=== PATIENT | female | born 1965 | race African-American/Black ===

== ENCOUNTER 2018-11-13 15:34 | Inpatient (IN) ==
[2018-11-13] MEDS ORDERED: KETOROLAC 30 MG/1 ML VIAL IM STA (17:44)
[2018-11-13 18:14] LABS: Albumin 2.5 G/DL (3.4-5.0); Bilirubin,Total 1.8 MG/DL (0.2-1.0); Calcium 10.1 MG/DL (8.5-10.1); Osmolality,Calculated 271.7 MOS/KG (273-304); Total Protein 8.4 G/DL (6.4-8.3)
[2018-11-13 18:22] LABS: Basophils # 0.1 10*3/uL (0.0-0.2); Basophils % 0.3 % (0.0-0.8); Hematocrit 32.1 VOL% (35.7-47.0); Hemoglobin 10.3 GM/DL (12.0-16.0); Immature Granulocytes % 1.7 %; Immature Granulocytes Absolute 0.31 #; Lymphocytes # 0.9 10*3/uL (1.4-4.0); Lymphocytes % 5.1 % (21.3-54.2); Mean Corpuscular HGB Conc 32.1 GM/DL (32-36); Mean Corpuscular Volume 89.2 FL (87-102); Mean Platelet Volume 11.8 FL (9.6-12.0); Monocytes % 3.6 % (1.7-12.7); Neutrophils % 89.3 % (38.7-73.9); Platelet Count 221 T/CUMM (130-400); Red Cell Distribution Width 13.7 % (9.3-17.3); White Blood Count 18.5 T/CUMM (4-12)
[2018-11-13] MEDS ORDERED: POTASSIUM CHLORIDE 20 MEQ TABLET PO STA (18:29)
[2018-11-13] MEDS ORDERED: CLINDAMYCIN INJ 600 MG in PREMIX 1 EACH IV STA (18:42)
[2018-11-13] MEDS ORDERED: INSULIN REGULAR 100 UNIT/ML IV STA (18:42)
[2018-11-13] MEDS ORDERED: CLINDAMYCIN INJ 50 ML IV ONE (18:58)
[2018-11-13] MEDS ORDERED: INSULIN REGULAR 100 UNIT/ML ONE (19:22)
[2018-11-13 19:34] LABS: Band Neutrophils 1 % (0-10); Hypochromasia 1+; Lymphocytes 4 % (20-55); Segmented Neutrophils 92 % (50-85); Total Cells Counted 100
[2018-11-13 19:35] LABS: Macrocytosis Slight; Microcytosis 1+
[2018-11-13] MEDS ORDERED: ACETAMINOPHEN 500 MG TABLET PO STA (19:50)
[2018-11-13] MEDS ORDERED: DEXTROSE 50% 25 GM/50 ML SYRINGE IV PRN (20:08)
[2018-11-13] MEDS ORDERED: MORPHINE 4 MG/1 ML VIAL IV PRN (20:08)
[2018-11-13] MEDS ORDERED: ZALEPLON 5 MG CAPSULE PO PRN (20:08)
[2018-11-13] MEDS ORDERED: ACETAMINOPHEN 325 MG TABLET PO PRN (20:08)
[2018-11-13] MEDS ORDERED: guaiFENesin/DM ER 600-30 MG TABLET PO PRN (20:08)
[2018-11-13] MEDS ORDERED: diphenhydrAMINE CAP 25 MG CAPSULE PO PRN (20:08)
[2018-11-13] MEDS ORDERED: NICOTINE 21 MG/24 HR PATCH TRANSDERM PRN (20:08)
[2018-11-13] MEDS ORDERED: GLUCAGON 1 MG VIAL IM PRN (20:08)
[2018-11-13 20:28] LABS: Apearance,Urine CLOUDY (Clear); Bacteria,Urine Occasional /HPF (Few); Blood, Urine Moderate mg/dL (Negative); Glucose,Urine (UA) 50 mg/dL (Negative); Hyaline Casts,Urine 49 /LPF (0-3); Ketones,Urine 5 mg/dL (Negative); Mucus,Urine Moderate /LPF (Occasional); Nitrite,Urine Negative (Negative); Protein,Urine 100 MG/DL; RBC,Urine 41 /HPF (0-4); Squamous Epithelial Cell,Urine Occasional /HPF (0-10); Urine Color Amber (Yellow); Urine Specific Gravity 1.028 (1.001-1.035); WBC,Urine 4 /HPF (0-6)
[2018-11-13 20:30] LABS: Bilirubin,Urine Moderate mg/dL (Negative)
[2018-11-13] MEDS: SODIUM CHLORIDE 0.9% 1,000 ML IV SCH (22:49)
[2018-11-13] MEDS: INSULIN REGULAR 100 UNIT/ML SUBCUT SCH (22:51)
[2018-11-14 02:46] LABS: Basophils % 0.2 % (0.0-0.8); Eosinophils % 0.1 % (0.00-10.9); Hematocrit 27.3 VOL% (35.7-47.0); Hemoglobin 8.8 GM/DL (12.0-16.0); Immature Granulocytes % 0.8 %; Immature Granulocytes Absolute 0.14 #; Lymphocytes # 1.5 10*3/uL (1.4-4.0); Lymphocytes % 8.3 % (21.3-54.2); Mean Corpuscular HGB Conc 32.2 GM/DL (32-36); Mean Corpuscular Volume 89.5 FL (87-102); Neutrophils % 84.6 % (38.7-73.9); Platelet Count 171 T/CUMM (130-400); Red Blood Count 3.05 MC/CUMM (3.8-5.5); Red Cell Distribution Width 13.9 % (9.3-17.3); White Blood Count 17.9 T/CUMM (4-12)
[2018-11-14 03:09] LABS: Albumin 2.1 G/DL (3.4-5.0); Bilirubin,Total 1.3 MG/DL (0.2-1.0); Calcium 9.4 MG/DL (8.5-10.1); Osmolality,Calculated 272.4 MOS/KG (273-304); Total Protein 6.9 G/DL (6.4-8.3)
[2018-11-14] MEDS: CLINDAMYCIN INJ 600 MG in PREMIX 1 EACH IV SCH ×3 (03:44→20:20)
[2018-11-14 03:46] LABS: Lymphocytes 9 % (20-55); Segmented Neutrophils 89 % (50-85); Total Cells Counted 100
[2018-11-14 03:48] LABS: Anisocytosis Slight; Microcytosis Slight
[2018-11-14 03:50] LABS: Platelet Estimate Normal
[2018-11-14] MEDS ORDERED: LIDOCAINE 2% 20 ML VIAL ONE (08:25)
[2018-11-14] MEDS: PANTOPRAZOLE 40 MG TABLET PO SCH (08:56)
[2018-11-14] MEDS: SODIUM CHLORIDE 0.9% 1,000 ML IV SCH ×2 (08:57→19:21)
[2018-11-14] MEDS: INSULIN REGULAR 100 UNIT/ML SUBCUT SCH ×4 (08:58→20:23)
[2018-11-14] MEDS: POTASSIUM CHLORIDE 20 MEQ TABLET PO PRN ×4 (10:00→17:17)
[2018-11-14 10:03] LABS: Cholesterol Crystals None Seen /LPF
[2018-11-14 10:04] LABS: Cholesterol Crystals None Seen /LPF
[2018-11-14 10:42] LABS: Lymphocytes,Synovial Fluid 1 %; Neutrophils,Synovial Fluid 98 %
[2018-11-14 11:21] LABS: Lymphocytes,Synovial Fluid 2 %; Neutrophils,Synovial Fluid 95 %
[2018-11-15] MEDS: POTASSIUM CHLORIDE 20 MEQ TABLET PO PRN ×4 (00:23→10:16)
[2018-11-15] MEDS: SODIUM CHLORIDE 0.9% 1,000 ML IV SCH ×3 (03:21→19:55)
[2018-11-15] MEDS: CLINDAMYCIN INJ 600 MG in PREMIX 1 EACH IV SCH ×3 (04:03→19:55)
[2018-11-15 08:14] LABS: Basophils % 0.3 % (0.0-0.8); Eosinophils # 0.1 10*3/uL (0.0-0.87); Eosinophils % 0.5 % (0.00-10.9); Hematocrit 25.5 VOL% (35.7-47.0); Hemoglobin 8.2 GM/DL (12.0-16.0); Immature Granulocytes % 2.6 %; Immature Granulocytes Absolute 0.29 #; Lymphocytes # 1.1 10*3/uL (1.4-4.0); Lymphocytes % 10.2 % (21.3-54.2); Mean Corpuscular HGB Conc 32.2 GM/DL (32-36); Mean Corpuscular Volume 88.9 FL (87-102); Mean Platelet Volume 11.3 FL (9.6-12.0); Monocytes % 6.9 % (1.7-12.7); Neutrophils % 79.5 % (38.7-73.9); Platelet Count 122 T/CUMM (130-400); Red Blood Count 2.87 MC/CUMM (3.8-5.5); Red Cell Distribution Width 13.7 % (9.3-17.3)
[2018-11-15] MEDS: INSULIN REGULAR 100 UNIT/ML SUBCUT SCH ×4 (08:23→20:00)
[2018-11-15 08:42] LABS: Albumin 1.8 G/DL (3.4-5.0); Bilirubin,Total 1.1 MG/DL (0.2-1.0); Calcium 8.4 MG/DL (8.5-10.1); Osmolality,Calculated 269.2 MOS/KG (273-304); Total Protein 6.3 G/DL (6.4-8.3)
[2018-11-15 08:49] LABS: Band Neutrophils 2 % (0-10); Hypochromasia 1+; Lymphocytes 9 % (20-55); Segmented Neutrophils 83 % (50-85); Total Cells Counted 100
[2018-11-15 08:50] LABS: Microcytosis Slight
[2018-11-15] MEDS: PANTOPRAZOLE 40 MG TABLET PO SCH (10:15)
[2018-11-16] MEDS: CLINDAMYCIN INJ 600 MG in PREMIX 1 EACH IV SCH ×3 (03:39→23:08)
[2018-11-16] MEDS: SODIUM CHLORIDE 0.9% 1,000 ML IV SCH ×3 (03:39→23:07)
[2018-11-16] MEDS: POTASSIUM CHLORIDE 20 MEQ TABLET PO PRN (07:55)
[2018-11-16] MEDS: INSULIN REGULAR 100 UNIT/ML SUBCUT SCH ×4 (08:00→23:11)
[2018-11-16] MEDS: PANTOPRAZOLE 40 MG TABLET PO SCH (08:00)
[2018-11-16 08:19] LABS: Basophils % 0.2 % (0.0-0.8); Eosinophils % 0.1 % (0.00-10.9); Hematocrit 24.4 VOL% (35.7-47.0); Hemoglobin 8.2 GM/DL (12.0-16.0); Immature Granulocytes % 1.2 %; Immature Granulocytes Absolute 0.15 #; Lymphocytes # 0.7 10*3/uL (1.4-4.0); Lymphocytes % 5.7 % (21.3-54.2); Mean Corpuscular HGB Conc 33.6 GM/DL (32-36); Mean Corpuscular Volume 86.8 FL (87-102); Mean Platelet Volume 11.5 FL (9.6-12.0); Monocytes % 8.4 % (1.7-12.7); Neutrophils % 84.4 % (38.7-73.9); Platelet Count 124 T/CUMM (130-400); Red Blood Count 2.81 MC/CUMM (3.8-5.5); Red Cell Distribution Width 13.9 % (9.3-17.3); White Blood Count 12.6 T/CUMM (4-12)
[2018-11-16 08:35] LABS: Albumin 1.7 G/DL (3.4-5.0); Bilirubin,Total 1.4 MG/DL (0.2-1.0); Calcium 8.7 MG/DL (8.5-10.1); Osmolality,Calculated 263.4 MOS/KG (273-304); Total Protein 6.6 G/DL (6.4-8.3)
[2018-11-16 08:41] LABS: Band Neutrophils 5 % (0-10); Eosinophils 3 % (0-10); Hypochromasia 1+; Lymphocytes 3 % (20-55); Microcytosis 1+; Segmented Neutrophils 85 % (50-85); Total Cells Counted 100
[2018-11-16] MEDS ORDERED: POTASSIUM CHLORIDE RIDER 20 MEQ in PREMIX 1 EACH IV PRN (10:59)
[2018-11-16] MEDS: POTASSIUM CHLORIDE RIDER 10 MEQ in PREMIX 1 EACH IV PRN ×5 (11:50→19:39)
[2018-11-16] MEDS: ALBUTEROL/IPRATROPIUM 3 ML NEB RESP TX SCH (20:05)
[2018-11-17] MEDS: POTASSIUM CHLORIDE RIDER 10 MEQ in PREMIX 1 EACH IV PRN ×5 (00:01→06:22)
[2018-11-17] MEDS: ALBUTEROL/IPRATROPIUM 3 ML NEB RESP TX SCH ×4 (01:35→20:23)
[2018-11-17 01:40] LABS: Cyclic Citrull Peptide Interp Negative
[2018-11-17] MEDS: CLINDAMYCIN INJ 600 MG in PREMIX 1 EACH IV SCH ×3 (06:30→21:38)
[2018-11-17] MEDS: SODIUM CHLORIDE 0.9% 1,000 ML IV SCH ×2 (07:49→20:51)
[2018-11-17 08:57] LABS: Basophils % 0.2 % (0.0-0.8); Eosinophils % 0.2 % (0.00-10.9); Hematocrit 24.4 VOL% (35.7-47.0); Immature Granulocytes % 1.5 %; Immature Granulocytes Absolute 0.25 #; Lymphocytes # 0.8 10*3/uL (1.4-4.0); Lymphocytes % 4.7 % (21.3-54.2); Mean Corpuscular HGB Conc 32.8 GM/DL (32-36); Mean Corpuscular Volume 86.8 FL (87-102); Monocytes % 7.4 % (1.7-12.7); Platelet Count 147 T/CUMM (130-400); Red Blood Count 2.81 MC/CUMM (3.8-5.5); Red Cell Distribution Width 14.1 % (9.3-17.3); White Blood Count 16.4 T/CUMM (4-12)
[2018-11-17] MEDS: POTASSIUM CHLORIDE 20 MEQ TABLET PO SCH ×3 (09:05→21:30)
[2018-11-17] MEDS: PANTOPRAZOLE 40 MG TABLET PO SCH (09:05)
[2018-11-17] MEDS: INSULIN REGULAR 100 UNIT/ML SUBCUT SCH ×4 (09:06→21:30)
[2018-11-17] MEDS ORDERED: MAGNESIUM SULF RIDER 2 GM in PREMIX 1 EACH IV PRN (09:15)
[2018-11-17 09:17] LABS: Hypochromasia 1+; Lymphocytes 4 % (20-55); Platelet Estimate Adequate; Segmented Neutrophils 90 % (50-85); Total Cells Counted 100
[2018-11-17 09:18] LABS: Microcytosis Slight
[2018-11-17 09:29] LABS: Albumin 1.6 G/DL (3.4-5.0); Bilirubin,Total 1.1 MG/DL (0.2-1.0); Osmolality,Calculated 263.4 MOS/KG (273-304); Total Protein 6.2 G/DL (6.4-8.3)
[2018-11-17] MEDS: MAGNESIUM SULF RIDER 4 GM in PREMIX 1 EACH IV PRN (10:16)
[2018-11-17] MEDS: ONDANSETRON 4 MG/2 ML VIAL IV PRN (10:20)
[2018-11-17] MEDS: ENOXAPARIN 40 MG/0.4 ML SYRINGE SUBCUT SCH (13:13)
[2018-11-18] MEDS: ALBUTEROL/IPRATROPIUM 3 ML NEB RESP TX SCH ×4 (01:57→19:40)
[2018-11-18] MEDS: CLINDAMYCIN INJ 600 MG in PREMIX 1 EACH IV SCH ×2 (04:35→16:48)
[2018-11-18 08:24] LABS: Basophils % 0.2 % (0.0-0.8); Eosinophils % 0.2 % (0.00-10.9); Hematocrit 23.5 VOL% (35.7-47.0); Immature Granulocytes % 1.5 %; Immature Granulocytes Absolute 0.26 #; Lymphocytes % 5.4 % (21.3-54.2); Mean Corpuscular HGB Conc 32.8 GM/DL (32-36); Mean Corpuscular Volume 86.7 FL (87-102); Mean Platelet Volume 11.5 FL (9.6-12.0); Monocytes % 6.8 % (1.7-12.7); Neutrophils % 85.9 % (38.7-73.9); Platelet Count 196 T/CUMM (130-400); Red Blood Count 2.71 MC/CUMM (3.8-5.5); Red Cell Distribution Width 14.3 % (9.3-17.3); White Blood Count 17.9 T/CUMM (4-12)
[2018-11-18 08:26] LABS: Hemoglobin 7.7 GM/DL (12.0-16.0)
[2018-11-18 08:28] LABS: Albumin 1.4 G/DL (3.4-5.0); Bilirubin,Total 0.9 MG/DL (0.2-1.0); Calcium 8.2 MG/DL (8.5-10.1); Osmolality,Calculated 262.4 MOS/KG (273-304); Total Protein 6.3 G/DL (6.4-8.3)
[2018-11-18 08:32] LABS: Hypochromasia 1+; Lymphocytes 9 % (20-55); Microcytosis Slight; Platelet Estimate Adequate; Segmented Neutrophils 88 % (50-85); Total Cells Counted 100
[2018-11-18] MEDS: INSULIN REGULAR 100 UNIT/ML SUBCUT SCH ×4 (08:58→20:54)
[2018-11-18] MEDS: PANTOPRAZOLE 40 MG TABLET PO SCH (09:10)
[2018-11-18] MEDS: POTASSIUM CHLORIDE 20 MEQ TABLET PO SCH ×2 (09:10→20:57)
[2018-11-18] MEDS: BISACODYL 5 MG TABLET PO PRN (09:10)
[2018-11-18 09:30] LABS: Troponin I < 0.015 NG/ML (0.00-0.045)
[2018-11-18] MEDS: SODIUM CHLORIDE 0.9% 1,000 ML IV SCH (10:44)
[2018-11-18] MEDS: LEVOFLOXACIN INJ 500 MG in PREMIX 1 EACH IV SCH (11:23)
[2018-11-18] MEDS: ENOXAPARIN 40 MG/0.4 ML SYRINGE SUBCUT SCH (11:33)
[2018-11-18] MEDS: SIMETHICONE CHEW 125 MG TABLET PO PRN (18:00)
[2018-11-18] MEDS: ONDANSETRON 4 MG/2 ML VIAL IV PRN (21:11)
[2018-11-19] MEDS: CLINDAMYCIN INJ 600 MG in PREMIX 1 EACH IV SCH ×4 (00:06→23:40)
[2018-11-19] MEDS: ALBUTEROL/IPRATROPIUM 3 ML NEB RESP TX SCH ×4 (00:42→18:40)
[2018-11-19 05:54] LABS: Basophils % 0.2 % (0.0-0.8); Eosinophils % 0.2 % (0.00-10.9); Hematocrit 22.3 VOL% (35.7-47.0); Hemoglobin 7.6 GM/DL (12.0-16.0); Immature Granulocytes % 2.2 %; Immature Granulocytes Absolute 0.43 #; Lymphocytes # 0.7 10*3/uL (1.4-4.0); Lymphocytes % 3.4 % (21.3-54.2); Mean Corpuscular HGB Conc 34.1 GM/DL (32-36); Mean Corpuscular Volume 84.5 FL (87-102); Mean Platelet Volume 11.1 FL (9.6-12.0); Monocytes % 6.5 % (1.7-12.7); Neutrophils % 87.5 % (38.7-73.9); Platelet Count 212 T/CUMM (130-400); Red Blood Count 2.64 MC/CUMM (3.8-5.5); Red Cell Distribution Width 14.2 % (9.3-17.3); White Blood Count 19.1 T/CUMM (4-12)
[2018-11-19 06:07] LABS: Calcium 8.4 MG/DL (8.5-10.1); Osmolality,Calculated 264.5 MOS/KG (273-304)
[2018-11-19 06:49] LABS: Hypochromasia 2+; Lymphocytes 5 % (20-55); Platelet Estimate Adequate; Segmented Neutrophils 91 % (50-85); Total Cells Counted 100
[2018-11-19 06:50] LABS: Microcytosis Slight
[2018-11-19] MEDS: INSULIN REGULAR 100 UNIT/ML SUBCUT SCH ×4 (07:30→20:38)
[2018-11-19] MEDS: POTASSIUM CHLORIDE 20 MEQ TABLET PO SCH ×2 (08:19→20:18)
[2018-11-19] MEDS: PANTOPRAZOLE 40 MG TABLET PO SCH (08:19)
[2018-11-19] MEDS: BISACODYL 5 MG TABLET PO PRN (08:26)
[2018-11-19] MEDS: ENOXAPARIN 40 MG/0.4 ML SYRINGE SUBCUT SCH (12:03)
[2018-11-19] MEDS: LEVOFLOXACIN INJ 500 MG in PREMIX 1 EACH IV SCH (12:03)
[2018-11-20] MEDS: ALBUTEROL/IPRATROPIUM 3 ML NEB RESP TX SCH ×4 (00:45→18:50)
[2018-11-20 05:26] LABS: Basophils # 0.1 10*3/uL (0.0-0.2); Basophils % 0.2 % (0.0-0.8); Eosinophils # 0.1 10*3/uL (0.0-0.87); Eosinophils % 0.3 % (0.00-10.9); Hematocrit 24.3 VOL% (35.7-47.0); Hemoglobin 8.2 GM/DL (12.0-16.0); Immature Granulocytes % 4.9 %; Immature Granulocytes Absolute 1.48 #; Lymphocytes % 3.3 % (21.3-54.2); Mean Corpuscular HGB Conc 33.7 GM/DL (32-36); Mean Corpuscular Volume 85.3 FL (87-102); Mean Platelet Volume 11.4 FL (9.6-12.0); Monocytes % 4.9 % (1.7-12.7); Neutrophils % 86.4 % (38.7-73.9); Platelet Count 260 T/CUMM (130-400); Red Blood Count 2.85 MC/CUMM (3.8-5.5); Red Cell Distribution Width 14.6 % (9.3-17.3); White Blood Count 29.9 T/CUMM (4-12)
[2018-11-20 05:49] LABS: Calcium 8.7 MG/DL (8.5-10.1); Osmolality,Calculated 257.9 MOS/KG (273-304)
[2018-11-20 05:58] LABS: Band Neutrophils 2 % (0-10); Eosinophils 1 % (0-10); Lymphocytes 3 % (20-55); Platelet Estimate Adequate; Segmented Neutrophils 86 % (50-85); Total Cells Counted 100
[2018-11-20 05:59] LABS: Hypochromasia 1+; Microcytosis Slight
[2018-11-20] MEDS: POTASSIUM CHLORIDE 20 MEQ TABLET PO SCH ×2 (08:38→21:45)
[2018-11-20] MEDS: PANTOPRAZOLE 40 MG TABLET PO SCH (08:39)
[2018-11-20] MEDS: CLINDAMYCIN INJ 600 MG in PREMIX 1 EACH IV SCH (08:39)
[2018-11-20] MEDS: methylPREDNISolone SOD SUC 40 MG/1 ML VIAL IV SCH ×2 (08:49→21:43)
[2018-11-20] MEDS: INSULIN REGULAR 100 UNIT/ML SUBCUT SCH ×4 (08:50→21:45)
[2018-11-20] MEDS: ENOXAPARIN 40 MG/0.4 ML SYRINGE SUBCUT SCH (12:06)
[2018-11-20] MEDS: LEVOFLOXACIN INJ 500 MG in PREMIX 1 EACH IV SCH (12:06)
[2018-11-20 12:54] LABS: Apearance,Urine Slightly Hazy (Clear); Bacteria,Urine Occasional /HPF (Few); Bilirubin,Urine Negative (Negative); Blood, Urine Small mg/dL (Negative); Glucose,Urine (UA) 150 mg/dL (Negative); Hyaline Casts,Urine 24 /LPF (0-3); Ketones,Urine 5 mg/dL (Negative); Mucus,Urine Few /LPF (Occasional); Nitrite,Urine Negative (Negative); Protein,Urine 30 MG/DL; RBC,Urine 1 /HPF (0-4); Squamous Epithelial Cell,Urine Few /HPF (0-10); Urine Color Amber (Yellow); Urine Specific Gravity 1.017 (1.001-1.035); WBC,Urine 7 /HPF (0-6)
[2018-11-20] MEDS ORDERED: FUROSEMIDE 40 MG/4 ML VIAL IV ONE (15:07)
[2018-11-20] MEDS: PIPERACILLIN/TAZOBACTAM 3,375 MG in SODIUM CHLORIDE 0.9% 100 ML IV SCH (15:34)
[2018-11-20] MEDS: VANCOMYCIN INJ 1,000 MG in SODIUM CHLORIDE 0.9% 250 ML IV SCH (21:46)
[2018-11-21] MEDS: PIPERACILLIN/TAZOBACTAM 3,375 MG in SODIUM CHLORIDE 0.9% 100 ML IV SCH ×3 (00:35→16:03)
[2018-11-21] MEDS: ALBUTEROL/IPRATROPIUM 3 ML NEB RESP TX SCH ×4 (00:40→19:18)
[2018-11-21 04:37] LABS: Basophils % 0.2 % (0.0-0.8); Hematocrit 21.1 VOL% (35.7-47.0); Hemoglobin 7.4 GM/DL (12.0-16.0); Immature Granulocytes % 3.3 %; Lymphocytes # 0.7 10*3/uL (1.4-4.0); Lymphocytes % 3.2 % (21.3-54.2); Mean Corpuscular HGB Conc 35.1 GM/DL (32-36); Mean Corpuscular Volume 82.4 FL (87-102); Mean Platelet Volume 11.3 FL (9.6-12.0); Monocytes % 3.9 % (1.7-12.7); Neutrophils % 89.4 % (38.7-73.9); Platelet Count 271 T/CUMM (130-400); Red Blood Count 2.56 MC/CUMM (3.8-5.5); Red Cell Distribution Width 14.3 % (9.3-17.3); White Blood Count 21.4 T/CUMM (4-12)
[2018-11-21 04:50] LABS: Albumin 1.4 G/DL (3.4-5.0); Bilirubin,Total 0.9 MG/DL (0.2-1.0); Calcium 8.6 MG/DL (8.5-10.1); Osmolality,Calculated 264.8 MOS/KG (273-304); Total Protein 6.6 G/DL (6.4-8.3)
[2018-11-21 05:07] LABS: Lymphocytes 4 % (20-55); Metamyelocytes 2 %; Segmented Neutrophils 93 % (50-85); Total Cells Counted 100
[2018-11-21 05:08] LABS: Hypochromasia 1+; Target Cells Slight
[2018-11-21 05:09] LABS: Microcytosis Slight
[2018-11-21] MEDS ORDERED: FUROSEMIDE 40 MG/4 ML VIAL IV ONE (07:46)
[2018-11-21] MEDS: INSULIN REGULAR 100 UNIT/ML SUBCUT SCH ×4 (09:12→22:40)
[2018-11-21] MEDS: PANTOPRAZOLE 40 MG TABLET PO SCH (09:14)
[2018-11-21] MEDS: POTASSIUM CHLORIDE 20 MEQ TABLET PO SCH ×2 (09:14→22:40)
[2018-11-21] MEDS: methylPREDNISolone SOD SUC 40 MG/1 ML VIAL IV SCH ×2 (09:15→22:40)
[2018-11-21] MEDS: ONDANSETRON 4 MG/2 ML VIAL IV PRN (09:18)
[2018-11-21] MEDS: ENOXAPARIN 40 MG/0.4 ML SYRINGE SUBCUT SCH (12:25)
[2018-11-21] MEDS: VANCOMYCIN INJ 1,000 MG in SODIUM CHLORIDE 0.9% 250 ML IV SCH ×2 (13:46→22:39)
[2018-11-22] MEDS: PIPERACILLIN/TAZOBACTAM 3,375 MG in SODIUM CHLORIDE 0.9% 100 ML IV SCH ×3 (00:04→16:44)
[2018-11-22] MEDS: ALBUTEROL/IPRATROPIUM 3 ML NEB RESP TX SCH ×4 (00:25→19:37)
[2018-11-22 05:48] LABS: Basophils # 0.1 10*3/uL (0.0-0.2); Basophils % 0.3 % (0.0-0.8); Hematocrit 20.5 VOL% (35.7-47.0); Hemoglobin 7.2 GM/DL (12.0-16.0); Immature Granulocytes % 3.5 %; Immature Granulocytes Absolute 0.66 #; Lymphocytes # 0.7 10*3/uL (1.4-4.0); Lymphocytes % 3.7 % (21.3-54.2); Mean Corpuscular HGB Conc 35.1 GM/DL (32-36); Mean Platelet Volume 11.2 FL (9.6-12.0); Monocytes % 6.6 % (1.7-12.7); Neutrophils % 85.9 % (38.7-73.9); Platelet Count 288 T/CUMM (130-400); Red Cell Distribution Width 14.1 % (9.3-17.3); White Blood Count 18.9 T/CUMM (4-12)
[2018-11-22 06:07] LABS: Calcium 7.8 MG/DL (8.5-10.1); Osmolality,Calculated 273.2 MOS/KG (273-304)
[2018-11-22 06:29] LABS: Lymphocytes 3 % (20-55); Nucleated Red Blood Cells 1 (0-5); Platelet Estimate Normal; Polychromasia Few; Segmented Neutrophils 96 % (50-85); Target Cells Few; Total Cells Counted 100
[2018-11-22 06:30] LABS: Hypochromasia 1+; Microcytosis 1+
[2018-11-22] MEDS ORDERED: FUROSEMIDE 40 MG/4 ML VIAL IV ONE (07:38)
[2018-11-22] MEDS: POTASSIUM CHLORIDE 20 MEQ TABLET PO SCH ×2 (08:19→20:06)
[2018-11-22] MEDS: PANTOPRAZOLE 40 MG TABLET PO SCH (08:19)
[2018-11-22] MEDS: INSULIN REGULAR 100 UNIT/ML SUBCUT SCH ×4 (08:19→20:06)
[2018-11-22] MEDS: methylPREDNISolone SOD SUC 40 MG/1 ML VIAL IV SCH ×2 (08:20→20:07)
[2018-11-22 09:37] LABS: Basophils % 0.2 % (0.0-0.8); Hematocrit 24.4 VOL% (35.7-47.0); Hemoglobin 8.2 GM/DL (12.0-16.0); Immature Granulocytes % 3.4 %; Immature Granulocytes Absolute 0.61 #; Lymphocytes # 0.7 10*3/uL (1.4-4.0); Mean Corpuscular HGB Conc 33.6 GM/DL (32-36); Mean Corpuscular Volume 84.4 FL (87-102); Mean Platelet Volume 11.1 FL (9.6-12.0); NRBC # 0.03 10*3/uL; Neutrophils % 87.4 % (38.7-73.9); Platelet Count 299 T/CUMM (130-400); Red Blood Count 2.89 MC/CUMM (3.8-5.5); Red Cell Distribution Width 14.4 % (9.3-17.3); White Blood Count 17.9 T/CUMM (4-12)
[2018-11-22 10:02] LABS: Hypochromasia 1+; Lymphocytes 2 % (20-55); Platelet Estimate Adequate; Segmented Neutrophils 92 % (50-85); Total Cells Counted 100
[2018-11-22 10:03] LABS: Microcytosis Slight
[2018-11-22 10:18] LABS: % Iron Saturation 29.2 % (18-50); Ferritin 3870.5 ng/ml (8-252)
[2018-11-22 10:21] LABS: Folate 3.6 NG/ML (5.4-24.0); Vitamin B12 1391 PG/ML (211-911)
[2018-11-22 10:41] LABS: Sedimentation Rate-Westergren 125 MM/HR (0-30)
[2018-11-22] MEDS: ENOXAPARIN 40 MG/0.4 ML SYRINGE SUBCUT SCH (12:04)
[2018-11-22] MEDS: VANCOMYCIN INJ 1,000 MG in SODIUM CHLORIDE 0.9% 250 ML IV SCH ×2 (12:12→23:23)
[2018-11-22 12:26] LABS: TB2 Ag Minus Result -0.04 IU/mL
[2018-11-22] MEDS: IRON SUCROSE 200 MG in SODIUM CHLORIDE 0.9% 100 ML IV SCH (13:54)
[2018-11-23] MEDS: ALBUTEROL/IPRATROPIUM 3 ML NEB RESP TX SCH ×4 (00:30→19:29)
[2018-11-23] MEDS: PIPERACILLIN/TAZOBACTAM 3,375 MG in SODIUM CHLORIDE 0.9% 100 ML IV SCH ×3 (00:45→17:55)
[2018-11-23 05:42] LABS: Basophils % 0.1 % (0.0-0.8); Hematocrit 21.2 VOL% (35.7-47.0); Hemoglobin 7.3 GM/DL (12.0-16.0); Immature Granulocytes % 3.8 %; Immature Granulocytes Absolute 0.58 #; Lymphocytes # 0.7 10*3/uL (1.4-4.0); Lymphocytes % 4.5 % (21.3-54.2); Mean Corpuscular HGB Conc 34.4 GM/DL (32-36); Mean Corpuscular Volume 82.8 FL (87-102); Mean Platelet Volume 11.4 FL (9.6-12.0); NRBC # 0.03 10*3/uL; Neutrophils % 84.6 % (38.7-73.9); Platelet Count 268 T/CUMM (130-400); Red Blood Count 2.56 MC/CUMM (3.8-5.5); Red Cell Distribution Width 14.1 % (9.3-17.3); White Blood Count 15.3 T/CUMM (4-12)
[2018-11-23 06:01] LABS: Calcium 8.1 MG/DL (8.5-10.1); Osmolality,Calculated 275.8 MOS/KG (273-304)
[2018-11-23 07:08] LABS: Hypochromasia 1+; Lymphocytes 2 % (20-55); Metamyelocytes 2 %; Microcytosis 1+; Myelocytes 1 %; Segmented Neutrophils 88 % (50-85); Target Cells Few; Total Cells Counted 100
[2018-11-23 07:09] LABS: Platelet Estimate Normal
[2018-11-23] MEDS: INSULIN REGULAR 100 UNIT/ML SUBCUT SCH ×4 (08:04→22:14)
[2018-11-23] MEDS: FOLIC ACID 1 MG TABLET PO SCH (08:05)
[2018-11-23] MEDS: POTASSIUM CHLORIDE 20 MEQ TABLET PO SCH ×2 (08:05→22:10)
[2018-11-23] MEDS: methylPREDNISolone SOD SUC 40 MG/1 ML VIAL IV SCH ×2 (08:05→22:10)
[2018-11-23] MEDS: PANTOPRAZOLE 40 MG TABLET PO SCH (08:05)
[2018-11-23 09:31] LABS: Hemoglobin A1 (Alkaline) 97.8 % (96.5-98.5); Hemoglobin A2 (Alkaline) 2.2 % (1.5-3.5)
[2018-11-23] MEDS: IRON SUCROSE 200 MG in SODIUM CHLORIDE 0.9% 100 ML IV SCH (12:27)
[2018-11-23] MEDS: ENOXAPARIN 40 MG/0.4 ML SYRINGE SUBCUT SCH (12:27)
[2018-11-24] MEDS: ALBUTEROL/IPRATROPIUM 3 ML NEB RESP TX SCH ×5 (00:24→23:58)
[2018-11-24] MEDS: PIPERACILLIN/TAZOBACTAM 3,375 MG in SODIUM CHLORIDE 0.9% 100 ML IV SCH ×3 (00:34→21:56)
[2018-11-24 05:54] LABS: Basophils # 0.1 10*3/uL (0.0-0.2); Basophils % 0.3 % (0.0-0.8); Hematocrit 21.2 VOL% (35.7-47.0); Hemoglobin 7.3 GM/DL (12.0-16.0); Immature Granulocytes % 4.6 %; Immature Granulocytes Absolute 0.94 #; Lymphocytes # 0.9 10*3/uL (1.4-4.0); Lymphocytes % 4.4 % (21.3-54.2); Mean Corpuscular HGB Conc 34.4 GM/DL (32-36); Mean Corpuscular Volume 83.1 FL (87-102); Mean Platelet Volume 11.2 FL (9.6-12.0); Monocytes % 6.5 % (1.7-12.7); NRBC # 0.04 10*3/uL; Neutrophils % 84.2 % (38.7-73.9); Platelet Count 262 T/CUMM (130-400); Red Blood Count 2.55 MC/CUMM (3.8-5.5); Red Cell Distribution Width 13.9 % (9.3-17.3); White Blood Count 20.3 T/CUMM (4-12)
[2018-11-24 06:19] LABS: Osmolality,Calculated 276.7 MOS/KG (273-304)
[2018-11-24 06:59] LABS: Anisocytosis 1+; Band Neutrophils 1 % (0-10); Lymphocytes 6 % (20-55); Segmented Neutrophils 86 % (50-85); Total Cells Counted 100
[2018-11-24 07:00] LABS: Hypochromasia 1+; Platelet Estimate Adequate; Target Cells 2+
[2018-11-24] MEDS ORDERED: MAGNESIUM SULF RIDER 4 GM in PREMIX 1 EACH IV ONE (07:35)
[2018-11-24] MEDS ORDERED: FUROSEMIDE 40 MG/4 ML VIAL IV ONE (07:36)
[2018-11-24] MEDS: POTASSIUM CHLORIDE 20 MEQ TABLET PO SCH ×2 (08:45→21:57)
[2018-11-24] MEDS: PANTOPRAZOLE 40 MG TABLET PO SCH (08:45)
[2018-11-24] MEDS: FOLIC ACID 1 MG TABLET PO SCH (08:45)
[2018-11-24] MEDS: INSULIN REGULAR 100 UNIT/ML SUBCUT SCH ×4 (08:46→21:57)
[2018-11-24] MEDS: ENOXAPARIN 40 MG/0.4 ML SYRINGE SUBCUT SCH (12:48)
[2018-11-24] MEDS: IRON SUCROSE 200 MG in SODIUM CHLORIDE 0.9% 100 ML IV SCH (17:14)
[2018-11-24] MEDS: ACETAMINOPHEN 325 MG TABLET PO PRN (18:20)
[2018-11-24] MEDS: VANCOMYCIN INJ 1,000 MG in SODIUM CHLORIDE 0.9% 250 ML IV SCH (18:34)
[2018-11-25] MEDS: PIPERACILLIN/TAZOBACTAM 3,375 MG in SODIUM CHLORIDE 0.9% 100 ML IV SCH ×3 (05:51→21:26)
[2018-11-25 05:55] LABS: Basophils % 0.1 % (0.0-0.8); Eosinophils # 0.2 10*3/uL (0.0-0.87); Eosinophils % 0.9 % (0.00-10.9); Hematocrit 22.8 VOL% (35.7-47.0); Hemoglobin 7.8 GM/DL (12.0-16.0); Immature Granulocytes % 4.1 %; Immature Granulocytes Absolute 0.87 #; Lymphocytes # 1.5 10*3/uL (1.4-4.0); Lymphocytes % 7.1 % (21.3-54.2); Mean Corpuscular HGB Conc 34.2 GM/DL (32-36); Mean Corpuscular Volume 82.9 FL (87-102); Mean Platelet Volume 11.1 FL (9.6-12.0); NRBC # 0.04 10*3/uL; Neutrophils % 83.8 % (38.7-73.9); Platelet Count 249 T/CUMM (130-400); Red Blood Count 2.75 MC/CUMM (3.8-5.5); Red Cell Distribution Width 14.3 % (9.3-17.3)
[2018-11-25 06:24] LABS: Calcium 7.8 MG/DL (8.5-10.1); Osmolality,Calculated 273.8 MOS/KG (273-304)
[2018-11-25 06:33] LABS: Anisocytosis 1+; Eosinophils 1 % (0-10); Hypochromasia 1+; Lymphocytes 4 % (20-55); Microcytosis 1+; Segmented Neutrophils 95 % (50-85); Total Cells Counted 100
[2018-11-25 06:34] LABS: Platelet Estimate Adequate
[2018-11-25] MEDS: ALBUTEROL/IPRATROPIUM 3 ML NEB RESP TX SCH ×3 (07:32→19:11)
[2018-11-25] MEDS: FUROSEMIDE 40 MG/4 ML VIAL IV SCH (09:32)
[2018-11-25] MEDS: VANCOMYCIN INJ 1,000 MG in SODIUM CHLORIDE 0.9% 250 ML IV SCH ×2 (09:32→18:45)
[2018-11-25] MEDS: PANTOPRAZOLE 40 MG TABLET PO SCH (09:32)
[2018-11-25] MEDS: POTASSIUM CHLORIDE 20 MEQ TABLET PO SCH ×2 (09:33→21:25)
[2018-11-25] MEDS: FOLIC ACID 1 MG TABLET PO SCH (09:33)
[2018-11-25] MEDS: INSULIN REGULAR 100 UNIT/ML SUBCUT SCH ×4 (09:33→20:45)
[2018-11-25] MEDS: IRON SUCROSE 200 MG in SODIUM CHLORIDE 0.9% 100 ML IV SCH (09:36)
[2018-11-25] MEDS: ACETAMINOPHEN 325 MG TABLET PO PRN ×2 (09:42→21:25)
[2018-11-25] MEDS: MAGNESIUM SULF RIDER 4 GM in PREMIX 1 EACH IV PRN (14:08)
[2018-11-25] MEDS: ENOXAPARIN 40 MG/0.4 ML SYRINGE SUBCUT SCH (14:13)
[2018-11-26] MEDS: ALBUTEROL/IPRATROPIUM 3 ML NEB RESP TX SCH ×4 (01:15→19:09)
[2018-11-26] MEDS: PIPERACILLIN/TAZOBACTAM 3,375 MG in SODIUM CHLORIDE 0.9% 100 ML IV SCH ×3 (05:32→21:02)
[2018-11-26 06:20] LABS: Basophils % 0.1 % (0.0-0.8); Eosinophils # 0.2 10*3/uL (0.0-0.87); Hematocrit 22.1 VOL% (35.7-47.0); Hemoglobin 7.5 GM/DL (12.0-16.0); Immature Granulocytes % 5.4 %; Immature Granulocytes Absolute 0.96 #; Lymphocytes # 1.4 10*3/uL (1.4-4.0); Mean Corpuscular HGB Conc 33.9 GM/DL (32-36); Mean Corpuscular Volume 83.4 FL (87-102); Mean Platelet Volume 10.8 FL (9.6-12.0); Monocytes % 5.7 % (1.7-12.7); Neutrophils % 79.8 % (38.7-73.9); Platelet Count 222 T/CUMM (130-400); Red Blood Count 2.65 MC/CUMM (3.8-5.5); Red Cell Distribution Width 14.5 % (9.3-17.3); White Blood Count 17.8 T/CUMM (4-12)
[2018-11-26 06:35] LABS: Calcium 8.3 MG/DL (8.5-10.1); Osmolality,Calculated 273.8 MOS/KG (273-304)
[2018-11-26 06:44] LABS: Band Neutrophils 2 % (0-10); Lymphocytes 4 % (20-55); Myelocytes 1 %; Segmented Neutrophils 90 % (50-85); Total Cells Counted 100
[2018-11-26 06:45] LABS: Anisocytosis 1+; Hypochromasia 1+; Target Cells 1+
[2018-11-26 06:46] LABS: Platelet Estimate Adequate
[2018-11-26] MEDS: INSULIN REGULAR 100 UNIT/ML SUBCUT SCH ×3 (07:39→18:04)
[2018-11-26] MEDS ORDERED: MAGNESIUM SULF RIDER 4 GM in PREMIX 1 EACH IV ONE (07:53)
[2018-11-26] MEDS: FUROSEMIDE 40 MG/4 ML VIAL IV SCH ×3 (09:25→18:03)
[2018-11-26] MEDS: IRON SUCROSE 200 MG in SODIUM CHLORIDE 0.9% 100 ML IV SCH (09:33)
[2018-11-26] MEDS: VANCOMYCIN INJ 1,000 MG in SODIUM CHLORIDE 0.9% 250 ML IV SCH ×2 (09:33→20:45)
[2018-11-26] MEDS: POTASSIUM CHLORIDE 20 MEQ TABLET PO SCH ×2 (09:34→21:02)
[2018-11-26] MEDS: PANTOPRAZOLE 40 MG TABLET PO SCH (09:34)
[2018-11-26] MEDS: FOLIC ACID 1 MG TABLET PO SCH (09:34)
[2018-11-26] MEDS: predniSONE 10 MG TABLET PO SCH (13:48)
[2018-11-26] MEDS: ENOXAPARIN 40 MG/0.4 ML SYRINGE SUBCUT SCH (13:49)
[2018-11-27] MEDS: ALBUTEROL/IPRATROPIUM 3 ML NEB RESP TX SCH ×3 (00:15→14:20)
[2018-11-27] MEDS: INSULIN REGULAR 100 UNIT/ML SUBCUT SCH ×3 (00:21→12:49)
[2018-11-27] MEDS: PIPERACILLIN/TAZOBACTAM 3,375 MG in SODIUM CHLORIDE 0.9% 100 ML IV SCH ×2 (03:45→12:30)
[2018-11-27 06:39] LABS: Basophils # 0.1 10*3/uL (0.0-0.2); Basophils % 0.2 % (0.0-0.8); Eosinophils # 0.1 10*3/uL (0.0-0.87); Eosinophils % 0.5 % (0.00-10.9); Hematocrit 22.6 VOL% (35.7-47.0); Hemoglobin 7.7 GM/DL (12.0-16.0); Immature Granulocytes % 2.3 %; Immature Granulocytes Absolute 0.55 #; Lymphocytes # 1.3 10*3/uL (1.4-4.0); Lymphocytes % 5.6 % (21.3-54.2); Mean Corpuscular HGB Conc 34.1 GM/DL (32-36); Mean Corpuscular Volume 83.4 FL (87-102); Monocytes % 5.7 % (1.7-12.7); Neutrophils % 85.7 % (38.7-73.9); Platelet Count 253 T/CUMM (130-400); Red Blood Count 2.71 MC/CUMM (3.8-5.5); Red Cell Distribution Width 14.6 % (9.3-17.3); White Blood Count 23.7 T/CUMM (4-12)
[2018-11-27 07:21] LABS: Band Neutrophils 2 % (0-10); Hypochromasia 1+; Lymphocytes 3 % (20-55); Segmented Neutrophils 91 % (50-85); Total Cells Counted 100
[2018-11-27 07:22] LABS: Microcytosis 1+
[2018-11-27 07:23] LABS: Platelet Estimate Normal; Target Cells Few
[2018-11-27 07:24] LABS: Calcium 8.4 MG/DL (8.5-10.1)
[2018-11-27] MEDS ORDERED: MAGNESIUM SULF RIDER 4 GM in PREMIX 1 EACH IV ONE (07:42)
[2018-11-27] MEDS: POTASSIUM CHLORIDE 20 MEQ TABLET PO SCH (09:30)
[2018-11-27] MEDS: predniSONE 10 MG TABLET PO SCH (09:30)
[2018-11-27] MEDS: FUROSEMIDE 40 MG/4 ML VIAL IV SCH (09:30)
[2018-11-27] MEDS: PANTOPRAZOLE 40 MG TABLET PO SCH (09:30)
[2018-11-27] MEDS: FOLIC ACID 1 MG TABLET PO SCH (09:30)
[2018-11-27] MEDS: ENOXAPARIN 40 MG/0.4 ML SYRINGE SUBCUT SCH (10:44)
[2018-11-27] MEDS: POTASSIUM CHLORIDE 20 MEQ TABLET PO PRN ×2 (10:44→12:49)
[2018-11-27] MEDS: SIMETHICONE CHEW 125 MG TABLET PO PRN (10:48)
[2018-11-27] MEDS: VANCOMYCIN INJ 1,000 MG in SODIUM CHLORIDE 0.9% 250 ML IV SCH (12:30)
[2018-11-27 13:40] VITALS: BP 107/71
== END 2018-11-27 15:20 | disposition home or self-care (01) | DRG 564 ==
LOC: N.EDINP 15:34 → N.ED 15:34 → N.TELEN 21:39 → N.5E 11-14 15:25 → SUATTDRO 11-16 09:34
PROVIDERS: ATTEND Internal Medicine

== ENCOUNTER 2018-12-20 09:38 | Inpatient (IN) ==
[2018-12-20] MEDS ORDERED: SODIUM CHLORIDE 0.9% 1,000 ML IV STA ×2 (10:12→12:49)
[2018-12-20 10:51] LABS: Basophils % 0.3 % (0.0-0.8); Eosinophils % 0.1 % (0.00-10.9); Hematocrit 29.4 VOL% (35.7-47.0); Hemoglobin 9.2 GM/DL (12.0-16.0); Immature Granulocytes % 0.9 %; Immature Granulocytes Absolute 0.12 #; Lymphocytes % 6.9 % (21.3-54.2); Mean Corpuscular HGB Conc 31.3 GM/DL (32-36); Mean Corpuscular Volume 89.6 FL (87-102); Mean Platelet Volume 10.2 FL (9.6-12.0); Monocytes % 2.9 % (1.7-12.7); Neutrophils % 88.9 % (38.7-73.9); Platelet Count 205 T/CUMM (130-400); Red Blood Count 3.28 MC/CUMM (3.8-5.5); Red Cell Distribution Width 18.2 % (9.3-17.3); White Blood Count 13.8 T/CUMM (4-12)
[2018-12-20 11:08] LABS: Alanine Aminotransferase 23 U/L (13-56); Albumin 2.5 G/DL (3.4-5.0); Alkaline Phosphatase 162 U/L (45-117); Aspartate Amino Transferase 37 U/L (0-37); Blood Urea Nitrogen 14 MG/DL (7-18); Calcium 8.4 MG/DL (8.5-10.1); Glucose 246 MG/DL (74-106); Total Protein 7.1 G/DL (6.4-8.3)
[2018-12-20] MEDS ORDERED: POTASSIUM CHLORIDE RIDER 200 ML IV ONE (11:16)
[2018-12-20] MEDS: POTASSIUM CHLORIDE RIDER 10 MEQ in PREMIX 1 EACH IV SCH ×2 (11:29→12:30)
[2018-12-20 12:32] LABS: Apearance,Urine Clear (Clear); Bilirubin,Urine Negative (Negative); Blood, Urine Negative (Negative); Glucose,Urine (UA) 3+ mg/dL (Negative); Ketones,Urine Negative (Negative); Nitrite,Urine Negative (Negative); Protein,Urine Negative; Squamous Epithelial Cell,Urine Rare /HPF (0-10); Urine Color Yellow (Yellow); Urine Specific Gravity 1.005 (1.001-1.035); Urine Urobilinogen < 2.0 EU/DL (0.2-1.0); WBC,Urine Rare /HPF (0-6)
[2018-12-20 12:33] LABS: Bacteria,Urine 2+ /HPF (Few); Mucus,Urine Trace /LPF (Occasional)
[2018-12-20] MEDS ORDERED: SODIUM CHLORIDE 0.9% 1,950 ML IV ONE (12:48)
[2018-12-20] MEDS: PIPERACILLIN/TAZOBACTAM 3,375 MG in SODIUM CHLORIDE 0.9% 100 ML IV SCH ×2 (13:20→20:53)
[2018-12-20] MEDS ORDERED: ONDANSETRON 4 MG/2 ML VIAL IV PRN (14:23)
[2018-12-20] MEDS ORDERED: ACETAMINOPHEN 325 MG TABLET PO PRN (14:23)
[2018-12-20] MEDS ORDERED: DEXTROSE 10% 250 ML BAG IV PRN (14:23)
[2018-12-20] MEDS ORDERED: GLUCAGON 1 MG VIAL IM PRN (14:23)
[2018-12-20] MEDS: SODIUM CHLORIDE 0.9% 1,000 ML IV SCH ×2 (14:30→17:45)
[2018-12-20] MEDS ORDERED: NOREPINEPHRINE 4 MG/4 ML VIAL IV ONE ×2 (15:48→16:37)
[2018-12-20] MEDS ORDERED: VANCOMYCIN 1,000 MG VIAL ONE (15:48)
[2018-12-20] MEDS: NOREPINEPHRINE 8 MG in SODIUM CHLORIDE 0.9% 242 ML IV PRN (16:10)
[2018-12-20] MEDS: VANCOMYCIN INJ 1,000 MG in SODIUM CHLORIDE 0.9% 250 ML IV SCH (17:00)
[2018-12-20] MEDS: POTASSIUM CHLORIDE 20 MEQ TABLET PO SCH ×2 (17:45→20:52)
[2018-12-20] MEDS: INSULIN REGULAR 100 UNIT/ML SUBCUT SCH ×2 (17:46→20:53)
[2018-12-20] MEDS: ENOXAPARIN 40 MG/0.4 ML SYRINGE SUBCUT SCH (20:53)
[2018-12-21] MEDS: SODIUM CHLORIDE 0.9% 1,000 ML IV SCH ×3 (01:37→15:29)
[2018-12-21] MEDS: VANCOMYCIN INJ 1,000 MG in SODIUM CHLORIDE 0.9% 250 ML IV SCH ×3 (01:39→16:46)
[2018-12-21 04:11] LABS: Basophils # 0.2 10*3/uL (0.0-0.2); Basophils % 0.5 % (0.0-0.8); Eosinophils # 0.1 10*3/uL (0.0-0.87); Eosinophils % 0.3 % (0.00-10.9); Hematocrit 23.8 VOL% (35.7-47.0); Hemoglobin 7.1 GM/DL (12.0-16.0); Immature Granulocytes % 4.9 %; Immature Granulocytes Absolute 1.84 #; Lymphocytes # 2.9 10*3/uL (1.4-4.0); Lymphocytes % 7.7 % (21.3-54.2); Mean Corpuscular HGB Conc 29.8 GM/DL (32-36); Mean Corpuscular Volume 93.7 FL (87-102); Monocytes % 4.3 % (1.7-12.7); Neutrophils % 82.3 % (38.7-73.9); Platelet Count 161 T/CUMM (130-400); Red Blood Count 2.54 MC/CUMM (3.8-5.5); Red Cell Distribution Width 18.9 % (9.3-17.3); White Blood Count 37.6 T/CUMM (4-12)
[2018-12-21 04:31] LABS: Calcium 6.5 MG/DL (8.5-10.1); Osmolality,Calculated 293.8 MOS/KG (273-304)
[2018-12-21 04:42] LABS: Band Neutrophils 2 % (0-10); Lymphocytes 6 % (20-55); Metamyelocytes 1 %; Platelet Estimate Normal; Segmented Neutrophils 88 % (50-85); Total Cells Counted 100
[2018-12-21] MEDS: PIPERACILLIN/TAZOBACTAM 3,375 MG in SODIUM CHLORIDE 0.9% 100 ML IV SCH ×3 (05:55→21:15)
[2018-12-21] MEDS: NOREPINEPHRINE 8 MG in SODIUM CHLORIDE 0.9% 242 ML IV PRN (06:08)
[2018-12-21] MEDS ORDERED: MAGNESIUM SULF RIDER 4 GM in PREMIX 1 EACH IV ONE (08:25)
[2018-12-21] MEDS: INSULIN REGULAR 100 UNIT/ML SUBCUT SCH ×4 (08:42→20:58)
[2018-12-21] MEDS: POTASSIUM CHLORIDE 20 MEQ TABLET PO SCH ×2 (08:43→21:14)
[2018-12-21] MEDS: LEVOTHYROXINE 50 MCG TABLET PO SCH (10:24)
[2018-12-21] MEDS: ENOXAPARIN 40 MG/0.4 ML SYRINGE SUBCUT SCH (21:14)
[2018-12-22] MEDS: VANCOMYCIN INJ 1,000 MG in SODIUM CHLORIDE 0.9% 250 ML IV SCH ×2 (01:28→08:08)
[2018-12-22] MEDS: SODIUM CHLORIDE 0.9% 1,000 ML IV SCH ×2 (01:32→11:56)
[2018-12-22 05:52] LABS: Basophils % 0.3 % (0.0-0.8); Eosinophils # 0.2 10*3/uL (0.0-0.87); Eosinophils % 1.5 % (0.00-10.9); Hematocrit 23.8 VOL% (35.7-47.0); Hemoglobin 7.3 GM/DL (12.0-16.0); Immature Granulocytes % 1.7 %; Immature Granulocytes Absolute 0.26 #; Lymphocytes % 12.9 % (21.3-54.2); Mean Corpuscular HGB Conc 30.7 GM/DL (32-36); Mean Corpuscular Volume 91.5 FL (87-102); Mean Platelet Volume 11.3 FL (9.6-12.0); Monocytes % 4.4 % (1.7-12.7); Neutrophils % 79.2 % (38.7-73.9); Platelet Count 132 T/CUMM (130-400); Red Cell Distribution Width 18.4 % (9.3-17.3); White Blood Count 15.2 T/CUMM (4-12)
[2018-12-22 06:06] LABS: Albumin 1.7 G/DL (3.4-5.0); Calcium 7.1 MG/DL (8.5-10.1); Osmolality,Calculated 285.7 MOS/KG (273-304)
[2018-12-22] MEDS: PIPERACILLIN/TAZOBACTAM 3,375 MG in SODIUM CHLORIDE 0.9% 100 ML IV SCH ×2 (06:30→12:09)
[2018-12-22 06:41] LABS: Anisocytosis 1+; Lymphocytes 10 % (20-55); Platelet Estimate Adequate; Segmented Neutrophils 90 % (50-85); Total Cells Counted 100
[2018-12-22] MEDS: INSULIN REGULAR 100 UNIT/ML SUBCUT SCH ×4 (07:53→20:44)
[2018-12-22] MEDS: LEVOTHYROXINE 50 MCG TABLET PO SCH (08:01)
[2018-12-22] MEDS: POTASSIUM CHLORIDE 20 MEQ TABLET PO SCH ×2 (08:01→21:04)
[2018-12-22] MEDS: ceFAZolin 1,000 MG in SYRINGE 1 EACH IV SCH ×2 (14:28→21:03)
[2018-12-22] MEDS: LACTATED RINGERS 1,000 ML IV SCH (18:17)
[2018-12-22] MEDS: ENOXAPARIN 40 MG/0.4 ML SYRINGE SUBCUT SCH (21:03)
[2018-12-23] MEDS: LACTATED RINGERS 1,000 ML IV SCH ×3 (02:20→17:34)
[2018-12-23] MEDS: ceFAZolin 1,000 MG in SYRINGE 1 EACH IV SCH ×2 (05:28→14:09)
[2018-12-23 06:20] LABS: Basophils % 0.8 % (0.0-0.8); Eosinophils # 0.1 10*3/uL (0.0-0.87); Eosinophils % 2.8 % (0.00-10.9); Hematocrit 22.5 VOL% (35.7-47.0); Hemoglobin 6.7 GM/DL (12.0-16.0); Immature Granulocytes % 0.6 %; Immature Granulocytes Absolute 0.03 #; Lymphocytes # 1.7 10*3/uL (1.4-4.0); Lymphocytes % 33.4 % (21.3-54.2); Mean Corpuscular HGB Conc 29.8 GM/DL (32-36); Mean Corpuscular Volume 91.1 FL (87-102); Mean Platelet Volume 11.6 FL (9.6-12.0); Neutrophils % 54.4 % (38.7-73.9); Platelet Count 140 T/CUMM (130-400); Red Blood Count 2.47 MC/CUMM (3.8-5.5); Red Cell Distribution Width 17.9 % (9.3-17.3)
[2018-12-23 06:38] LABS: Albumin 1.8 G/DL (3.4-5.0); Calcium 7.7 MG/DL (8.5-10.1); Osmolality,Calculated 282.8 MOS/KG (273-304)
[2018-12-23] MEDS ORDERED: MAGNESIUM SULF RIDER 2 GM in PREMIX 1 EACH IV PRN ×2 (06:40→16:05)
[2018-12-23] MEDS: MAGNESIUM SULF RIDER 4 GM in PREMIX 1 EACH IV PRN (06:54)
[2018-12-23] MEDS: POTASSIUM CHLORIDE 20 MEQ TABLET PO SCH ×2 (09:00→20:25)
[2018-12-23] MEDS: LEVOTHYROXINE 50 MCG TABLET PO SCH (09:00)
[2018-12-23] MEDS: INSULIN REGULAR 100 UNIT/ML SUBCUT SCH ×4 (09:01→20:13)
[2018-12-23] MEDS ORDERED: MAGNESIUM SULF RIDER 4 GM in PREMIX 1 EACH IV PRN (16:05)
[2018-12-23] MEDS ORDERED: SODIUM CHLORIDE 0.9% 1,000 ML IV PRN ×2 (16:06→17:25)
[2018-12-23] MEDS ORDERED: DEXTROSE 10% 25 GM/250 ML BAG IV PRN (16:45)
[2018-12-23] MEDS ORDERED: GLUCAGON 1 MG VIAL IM PRN (16:45)
[2018-12-23] MEDS: PIPERACILLIN/TAZOBACTAM 3,375 MG in SODIUM CHLORIDE 0.9% 100 ML IV SCH (17:34)
[2018-12-23] MEDS: ENOXAPARIN 40 MG/0.4 ML SYRINGE SUBCUT SCH (20:25)
[2018-12-24] MEDS: PIPERACILLIN/TAZOBACTAM 3,375 MG in SODIUM CHLORIDE 0.9% 100 ML IV SCH ×3 (01:07→17:09)
[2018-12-24 02:07] LABS: Hematocrit 30.4 VOL% (35.7-47.0); Hemoglobin 9.6 GM/DL (12.0-16.0)
[2018-12-24] MEDS: MAGNESIUM SULF RIDER 4 GM in PREMIX 1 EACH IV PRN (05:24)
[2018-12-24] MEDS ORDERED: DEXTROSE 10% 25 GM/250 ML BAG IV PRN (09:58)
[2018-12-24] MEDS ORDERED: GLUCAGON 1 MG VIAL IM PRN (09:58)
[2018-12-24] MEDS: POTASSIUM CHLORIDE 20 MEQ TABLET PO SCH ×2 (11:03→21:16)
[2018-12-24] MEDS: LEVOTHYROXINE 50 MCG TABLET PO SCH (11:03)
[2018-12-24] MEDS: INSULIN REGULAR 100 UNIT/ML SUBCUT SCH ×4 (11:09→20:22)
[2018-12-24] MEDS: LACTATED RINGERS 1,000 ML IV SCH (17:34)
[2018-12-24] MEDS: ENOXAPARIN 40 MG/0.4 ML SYRINGE SUBCUT SCH (21:16)
[2018-12-25] MEDS: PIPERACILLIN/TAZOBACTAM 3,375 MG in SODIUM CHLORIDE 0.9% 100 ML IV SCH ×3 (02:55→17:06)
[2018-12-25] MEDS: LACTATED RINGERS 1,000 ML IV SCH ×2 (02:57→09:45)
[2018-12-25] MEDS: INSULIN REGULAR 100 UNIT/ML SUBCUT SCH ×4 (07:47→21:08)
[2018-12-25] MEDS: LEVOTHYROXINE 50 MCG TABLET PO SCH (09:41)
[2018-12-25] MEDS: POTASSIUM CHLORIDE 20 MEQ TABLET PO SCH ×2 (09:41→21:36)
[2018-12-25 11:06] LABS: Hemoglobin A1 (Alkaline) 97.8 % (96.5-98.5); Hemoglobin A2 (Alkaline) 2.2 % (1.5-3.5)
[2018-12-25] MEDS: MAGNESIUM CHLORIDE 64 MG TABLET PO SCH ×2 (12:24→21:36)
[2018-12-25] MEDS: ENOXAPARIN 40 MG/0.4 ML SYRINGE SUBCUT SCH (21:34)
[2018-12-26] MEDS: PIPERACILLIN/TAZOBACTAM 3,375 MG in SODIUM CHLORIDE 0.9% 100 ML IV SCH ×3 (01:10→16:20)
[2018-12-26] MEDS: INSULIN REGULAR 100 UNIT/ML SUBCUT SCH ×4 (08:12→22:02)
[2018-12-26] MEDS ORDERED: PROPOFOL 200 MG/20 ML VIAL IV ONE (09:00)
[2018-12-26] MEDS ORDERED: LIDOCAINE 100 MG/5 ML SYRINGE ONE (09:00)
[2018-12-26] MEDS: LACTATED RINGERS 1,000 ML IV SCH ×2 (09:03→12:32)
[2018-12-26] MEDS: MAGNESIUM CHLORIDE 64 MG TABLET PO SCH ×2 (10:12→22:02)
[2018-12-26] MEDS: BISACODYL 5 MG TABLET PO SCH ×2 (10:14→16:20)
[2018-12-26] MEDS: LEVOTHYROXINE 50 MCG TABLET PO SCH (10:14)
[2018-12-26] MEDS: POTASSIUM CHLORIDE 20 MEQ TABLET PO SCH ×2 (10:16→22:02)
[2018-12-26] MEDS: PANTOPRAZOLE 40 MG TABLET PO SCH ×2 (12:21→22:02)
[2018-12-26] MEDS ORDERED: POLYETHYLENE GLYCOL POWDER 255 GM BOTTLE PO ONE (18:00)
[2018-12-26] MEDS ORDERED: MAGNESIUM CITRATE 300 ML BOTTLE PO ONE (21:00)
[2018-12-26] MEDS: ENOXAPARIN 40 MG/0.4 ML SYRINGE SUBCUT SCH (22:03)
[2018-12-27] MEDS: BISACODYL 5 MG TABLET PO SCH (00:34)
[2018-12-27] MEDS: PIPERACILLIN/TAZOBACTAM 3,375 MG in SODIUM CHLORIDE 0.9% 100 ML IV SCH ×2 (02:00→10:58)
[2018-12-27 05:00] LABS: Basophils # 0.1 10*3/uL (0.0-0.2); Basophils % 1.2 % (0.0-0.8); Eosinophils # 0.1 10*3/uL (0.0-0.87); Eosinophils % 2.6 % (0.00-10.9); Hematocrit 33.2 VOL% (35.7-47.0); Hemoglobin 10.4 GM/DL (12.0-16.0); Immature Granulocytes Absolute 0.05 #; Lymphocytes # 1.4 10*3/uL (1.4-4.0); Lymphocytes % 27.9 % (21.3-54.2); Mean Corpuscular HGB Conc 31.3 GM/DL (32-36); Mean Corpuscular Volume 84.7 FL (87-102); Mean Platelet Volume 10.9 FL (9.6-12.0); Monocytes % 16.9 % (1.7-12.7); Neutrophils % 50.4 % (38.7-73.9); Platelet Count 178 T/CUMM (130-400); Red Blood Count 3.92 MC/CUMM (3.8-5.5); Red Cell Distribution Width 19.3 % (9.3-17.3); White Blood Count 4.9 T/CUMM (4-12)
[2018-12-27 05:22] LABS: Band Neutrophils 2 % (0-10); Eosinophils 6 % (0-10); Hypochromasia 1+; Lymphocytes 24 % (20-55); Platelet Estimate Adequate; Segmented Neutrophils 56 % (50-85); Total Cells Counted 100
[2018-12-27] MEDS: INSULIN REGULAR 100 UNIT/ML SUBCUT SCH ×2 (08:32→11:45)
[2018-12-27] MEDS ORDERED: PROPOFOL 200 MG/20 ML VIAL IV ONE (10:10)
[2018-12-27] MEDS ORDERED: LIDOCAINE 2% 5 ML VIAL ONE (10:10)
[2018-12-27] MEDS: LEVOTHYROXINE 50 MCG TABLET PO SCH (11:00)
[2018-12-27] MEDS: PANTOPRAZOLE 40 MG TABLET PO SCH (11:00)
[2018-12-27] MEDS: POTASSIUM CHLORIDE 20 MEQ TABLET PO SCH (11:00)
[2018-12-27] MEDS: LACTATED RINGERS 1,000 ML IV SCH ×2 (11:01→15:55)
[2018-12-27] MEDS: MAGNESIUM CHLORIDE 64 MG TABLET PO SCH (11:05)
[2018-12-27 11:27] VITALS: BP 124/82
== END 2018-12-27 15:54 | disposition home or self-care (01) | DRG 871 ==
LOC: EDBD → EDUNIT# → N.ED 09:38 → N.EDINP 14:23 → SUATTDRO 14:24 → N.ICU 16:36 → N.2E 12-22 16:03
PROVIDERS: ADMIT Internal Medicine Geriatric Medicine; ATTEND Internal Medicine

== ENCOUNTER 2020-05-29 09:39 | Inpatient (IN) ==
[2020-05-29 11:24] LABS: Basophils # 0.1 10*3/uL (0.0-0.2); Basophils % 0.3 % (0.0-0.8); Eosinophils # 0.1 10*3/uL (0.0-0.87); Eosinophils % 0.4 % (0.00-10.9); Hematocrit 22.9 VOL% (35.7-47.0); Hemoglobin 8.3 GM/DL (12.0-16.0); Immature Granulocytes % 1.2 %; Immature Granulocytes Absolute 0.21 #; Lymphocytes # 0.9 10*3/uL (1.4-4.0); Mean Corpuscular HGB Conc 36.2 GM/DL (32-36); Mean Corpuscular Volume 89.5 FL (87-102); Mean Platelet Volume 11.4 FL (9.6-12.0); Monocytes % 11.5 % (1.7-12.7); Neutrophils % 81.6 % (38.7-73.9); Platelet Count 103 T/CUMM (130-400); Red Blood Count 2.56 MC/CUMM (3.8-5.5); Red Cell Distribution Width 17.5 % (9.3-17.3); White Blood Count 17.7 T/CUMM (4-12)
[2020-05-29 11:35] LABS: INR 2.8; PT Patient Result 28.9 SECS (9.8-11.9); Partial Thromboplastin Time 49.5 SECS (23.9-33.8)
[2020-05-29] MEDS ORDERED: ACETAMINOPHEN 325 MG TABLET PO PRN (11:38)
[2020-05-29] MEDS ORDERED: BISACODYL 5 MG TABLET PO PRN (11:38)
[2020-05-29] MEDS ORDERED: ALBUTEROL/IPRATROPIUM 3 ML NEB RESP TX PRN (11:38)
[2020-05-29] MEDS ORDERED: ONDANSETRON 4 MG/2 ML VIAL IV PRN (11:38)
[2020-05-29 11:44] LABS: Albumin 1.7 G/DL (3.4-5.0); Osmolality,Calculated 269.5 MOS/KG (273-304)
[2020-05-29 11:47] LABS: Bilirubin,Total 15.1 MG/DL (0.2-1.0)
[2020-05-29 12:46] LABS: % Iron Saturation 112.2 % (18-50); Ferritin 1579.4 ng/ml (8-252)
[2020-05-29 12:47] LABS: Vitamin B12 > 2000 PG/ML (211-911)
[2020-05-29] MEDS: LACTATED RINGERS 1,000 ML IV SCH (13:30)
[2020-05-29] MEDS ORDERED: IRON SUCROSE 300 MG in SODIUM CHLORIDE 0.9% 100 ML IV ONE (13:52)
[2020-05-29] MEDS ORDERED: LORazepam 2 MG/1 ML VIAL IV PRN (14:04)
[2020-05-29] MEDS: cefOXitin 2,000 MG in SYRINGE 1 EACH IV SCH ×2 (14:33→20:25)
[2020-05-29] MEDS: PANTOPRAZOLE 40 MG VIAL IV SCH ×2 (14:37→20:19)
[2020-05-29] MEDS: FOLIC ACID INJ 1 MG in SYRINGE 1 EACH IV SCH (16:36)
[2020-05-29] MEDS ORDERED: SODIUM CHLORIDE 0.9% 1,000 ML IV PRN ×2 (17:36→17:38)
[2020-05-29] MEDS ORDERED: PROMETHAZINE 25 MG/1 ML VIAL IM ONE (18:02)
[2020-05-29] MEDS: POTASSIUM CHLORIDE 20 MEQ TABLET PO SCH (20:19)
[2020-05-30] MEDS: cefOXitin 2,000 MG in SYRINGE 1 EACH IV SCH ×4 (05:06→22:52)
[2020-05-30] MEDS: LEVOTHYROXINE 100 MCG VIAL IV SCH (06:15)
[2020-05-30 06:51] LABS: Basophils % 0.2 % (0.0-0.8); Eosinophils # 0.1 10*3/uL (0.0-0.87); Eosinophils % 1.1 % (0.00-10.9); Immature Granulocytes % 1.9 %; Immature Granulocytes Absolute 0.17 #; Lymphocytes # 0.8 10*3/uL (1.4-4.0); Lymphocytes % 8.4 % (21.3-54.2); Mean Corpuscular HGB Conc 35.8 GM/DL (32-36); Mean Corpuscular Volume 91.3 FL (87-102); Mean Platelet Volume 11.1 FL (9.6-12.0); Monocytes % 10.4 % (1.7-12.7)
[2020-05-30 06:57] LABS: Red Blood Count 1.96 MC/CUMM (3.8-5.5); White Blood Count 8.9 T/CUMM (4-12)
[2020-05-30 06:58] LABS: Platelet Count 96 T/CUMM (130-400)
[2020-05-30 07:00] LABS: Hematocrit 17.9 VOL% (35.7-47.0); Hemoglobin 6.4 GM/DL (12.0-16.0)
[2020-05-30] MEDS ORDERED: LEVOTHYROXINE 100 MCG VIAL IV SCH (07:00)
[2020-05-30] MEDS ORDERED: SODIUM CHLORIDE 0.9% 1,000 ML IV PRN ×2 (07:13→07:14)
[2020-05-30 07:16] LABS: Target Cells 1+
[2020-05-30 07:17] LABS: Anisocytosis 1+; Hypochromasia 2+; Macrocytosis 1+; Platelet Estimate Decreased
[2020-05-30 07:17] LABS: Calcium 8.3 MG/DL (8.5-10.1); Osmolality,Calculated 272.2 MOS/KG (273-304); Total Protein 6.7 G/DL (6.4-8.3)
[2020-05-30 07:19] LABS: Bilirubin,Total 13.3 MG/DL (0.2-1.0)
[2020-05-30 07:53] LABS: HIV Antigen/Antibody Result Nonreactive (Nonreactive); Hepatitis B Core IgM Quant 0.19 Index; Hepatitis B Surface Ag Quant < 0.10 Index; Hepatitis B Surface Ag Result Negative (Negative); Hepatitis C Virus Ab Quant 0.12 Index; Hepatitis C Virus Ab Result Negative (Negative)
[2020-05-30] MEDS ORDERED: PANTOPRAZOLE 40 MG TABLET PO SCH (09:00)
[2020-05-30 09:22] LABS: Cyclic Citrull Peptide Interp Negative
[2020-05-30] MEDS ORDERED: ETOMIDATE 20 MG/10 ML VIAL IV ONE (09:25)
[2020-05-30] MEDS ORDERED: SUCCINYLCHOLINE 200 MG/10 ML VIAL ONE (09:25)
[2020-05-30] MEDS ORDERED: LIDOCAINE 2% 5 ML VIAL ONE (09:25)
[2020-05-30] MEDS ORDERED: MIDAZOLAM 2 MG/2 ML VIAL ONE (09:28)
[2020-05-30] MEDS ORDERED: fentaNYL 100 MCG/2 ML VIAL ONE (09:29)
[2020-05-30] MEDS ORDERED: MAGNESIUM SULF RIDER 4 GM in PREMIX 1 EACH IV ONE ×2 (10:05→16:00)
[2020-05-30] MEDS: LACTATED RINGERS 1,000 ML IV SCH ×4 (12:20→21:50)
[2020-05-30 12:21] LABS: PT Patient Result 20.9 SECS (9.8-11.9); Partial Thromboplastin Time 41.6 SECS (23.9-33.8)
[2020-05-30] MEDS: POTASSIUM CHLORIDE 20 MEQ TABLET PO SCH ×2 (13:52→21:25)
[2020-05-30] MEDS: FOLIC ACID INJ 1 MG in SYRINGE 1 EACH IV SCH (14:37)
[2020-05-30] MEDS: THIAMINE 200 MG/2 ML VIAL IV SCH (14:38)
[2020-05-30] MEDS: PANTOPRAZOLE 40 MG VIAL IV SCH ×2 (14:39→21:25)
[2020-05-30] MEDS: POTASSIUM CHLORIDE RIDER 10 MEQ in PREMIX 1 EACH IV SCH ×5 (14:45→18:54)
[2020-05-30] MEDS: MORPHINE 4 MG/1 ML VIAL IV PRN (18:16)
[2020-05-30 22:54] LABS: Barbiturates Screen,Urine Negative (Negative); Benzodiazepines Screen,Urine Negative (Negative); Cannabinoid Screen,Urine Negative (Negative); Opiate Screen,Urine Positive (Negative); Phencyclidine Screen,Urine Negative (Negative)
[2020-05-31 01:43] LABS: Hematocrit 41.2 VOL% (35.7-47.0); Hemoglobin 14.1 GM/DL (12.0-16.0)
[2020-05-31] MEDS: MORPHINE 4 MG/1 ML VIAL IV PRN ×2 (02:45→21:50)
[2020-05-31] MEDS: cefOXitin 2,000 MG in SYRINGE 1 EACH IV SCH ×4 (06:09→23:47)
[2020-05-31] MEDS: LEVOTHYROXINE 100 MCG VIAL IV SCH (06:15)
[2020-05-31] MEDS: LACTATED RINGERS 1,000 ML IV SCH ×3 (06:16→21:50)
[2020-05-31] MEDS: THIAMINE 200 MG/2 ML VIAL IV SCH (08:49)
[2020-05-31] MEDS: PANTOPRAZOLE 40 MG VIAL IV SCH ×2 (08:50→21:45)
[2020-05-31] MEDS: POTASSIUM CHLORIDE 20 MEQ TABLET PO SCH ×4 (12:19→21:45)
[2020-05-31 14:33] LABS: Calcium 8.4 MG/DL (8.5-10.1); Osmolality,Calculated 271.5 MOS/KG (273-304)
[2020-05-31] MEDS: FOLIC ACID INJ 1 MG in SYRINGE 1 EACH IV SCH (19:41)
[2020-06-01] MEDS: LACTATED RINGERS 1,000 ML IV SCH (05:08)
[2020-06-01] MEDS: cefOXitin 2,000 MG in SYRINGE 1 EACH IV SCH ×3 (05:08→17:41)
[2020-06-01 05:56] LABS: Basophils # 0.1 10*3/uL (0.0-0.2); Basophils % 0.5 % (0.0-0.8); Eosinophils # 0.1 10*3/uL (0.0-0.87); Eosinophils % 0.8 % (0.00-10.9); Hematocrit 43.3 VOL% (35.7-47.0); Hemoglobin 15.1 GM/DL (12.0-16.0); Immature Granulocytes % 1.8 %; Immature Granulocytes Absolute 0.17 #; Lymphocytes # 1.2 10*3/uL (1.4-4.0); Lymphocytes % 12.3 % (21.3-54.2); Mean Corpuscular HGB Conc 34.9 GM/DL (32-36); Mean Corpuscular Volume 87.8 FL (87-102); Mean Platelet Volume 11.8 FL (9.6-12.0); Monocytes % 14.1 % (1.7-12.7); Neutrophils % 70.5 % (38.7-73.9); Red Blood Count 4.93 MC/CUMM (3.8-5.5); Red Cell Distribution Width 17.2 % (9.3-17.3); White Blood Count 9.6 T/CUMM (4-12)
[2020-06-01 06:17] LABS: Platelet Count 61 T/CUMM (130-400)
[2020-06-01] MEDS: LEVOTHYROXINE 100 MCG VIAL IV SCH (06:25)
[2020-06-01 06:37] LABS: Platelet Estimate Decreased
[2020-06-01 06:40] LABS: Calcium 8.7 MG/DL (8.5-10.1); Osmolality,Calculated 263.1 MOS/KG (273-304)
[2020-06-01] MEDS: POTASSIUM CHLORIDE 20 MEQ TABLET PO SCH (10:34)
[2020-06-01] MEDS: THIAMINE 200 MG/2 ML VIAL IV SCH (10:35)
[2020-06-01] MEDS: PANTOPRAZOLE 40 MG VIAL IV SCH (10:35)
[2020-06-01] MEDS: FOLIC ACID INJ 1 MG in SYRINGE 1 EACH IV SCH (11:45)
[2020-06-01 11:59] LABS: INR 2.8; PT Patient Result 28.8 SECS (9.8-11.9)
[2020-06-01] MEDS: PANTOPRAZOLE 40 MG TABLET PO SCH (20:17)
[2020-06-02] MEDS: cefOXitin 2,000 MG in SYRINGE 1 EACH IV SCH ×5 (01:25→22:42)
[2020-06-02 05:45] LABS: Basophils # 0.1 10*3/uL (0.0-0.2); Basophils % 0.6 % (0.0-0.8); Eosinophils # 0.1 10*3/uL (0.0-0.87); Hematocrit 45.1 VOL% (35.7-47.0); Hemoglobin 15.9 GM/DL (12.0-16.0); Immature Granulocytes % 1.2 %; Immature Granulocytes Absolute 0.12 #; Lymphocytes # 1.1 10*3/uL (1.4-4.0); Lymphocytes % 10.5 % (21.3-54.2); Mean Corpuscular HGB Conc 35.3 GM/DL (32-36); Mean Corpuscular Volume 87.9 FL (87-102); Mean Platelet Volume 12.4 FL (9.6-12.0); Monocytes % 12.7 % (1.7-12.7); Platelet Count 53 T/CUMM (130-400); Red Blood Count 5.13 MC/CUMM (3.8-5.5); Red Cell Distribution Width 17.8 % (9.3-17.3); White Blood Count 10.3 T/CUMM (4-12)
[2020-06-02 06:09] LABS: INR 2.5; PT Patient Result 25.2 SECS (9.8-11.9); Platelet Estimate Decreased
[2020-06-02 07:03] LABS: Albumin 1.5 G/DL (3.4-5.0); Osmolality,Calculated 265.9 MOS/KG (273-304)
[2020-06-02 07:07] LABS: Bilirubin,Total 19.5 MG/DL (0.2-1.0)
[2020-06-02] MEDS: MORPHINE 4 MG/1 ML VIAL IV PRN (11:15)
[2020-06-02] MEDS: THIAMINE 100 MG TABLET PO SCH (12:25)
[2020-06-02] MEDS: LEVOTHYROXINE 50 MCG TABLET PO SCH (12:26)
[2020-06-02] MEDS: PANTOPRAZOLE 40 MG TABLET PO SCH ×2 (12:26→22:42)
[2020-06-02] MEDS: FOLIC ACID 1 MG TABLET PO SCH (12:26)
[2020-06-02] MEDS: prednisoLONE 15 MG/5 ML ORAL.SYR PO SCH (22:40)
[2020-06-03] MEDS: LEVOTHYROXINE 50 MCG TABLET PO SCH (06:03)
[2020-06-03] MEDS: cefOXitin 2,000 MG in SYRINGE 1 EACH IV SCH ×4 (06:03→23:35)
[2020-06-03 06:15] LABS: Albumin 1.3 G/DL (3.4-5.0); Calcium 8.9 MG/DL (8.5-10.1); Osmolality,Calculated 265.8 MOS/KG (273-304)
[2020-06-03 06:22] LABS: Basophils # 0.1 10*3/uL (0.0-0.2); Basophils % 0.7 % (0.0-0.8); Eosinophils # 0.1 10*3/uL (0.0-0.87); Eosinophils % 1.2 % (0.00-10.9); Hematocrit 43.3 VOL% (35.7-47.0); Hemoglobin 14.4 GM/DL (12.0-16.0); Immature Granulocytes % 0.9 %; Lymphocytes # 0.8 10*3/uL (1.4-4.0); Lymphocytes % 7.6 % (21.3-54.2); Mean Corpuscular HGB Conc 33.3 GM/DL (32-36); Mean Corpuscular Volume 91.4 FL (87-102); Mean Platelet Volume 11.3 FL (9.6-12.0); Monocytes % 9.3 % (1.7-12.7); Neutrophils % 80.3 % (38.7-73.9); Red Blood Count 4.74 MC/CUMM (3.8-5.5); Red Cell Distribution Width 18.3 % (9.3-17.3); White Blood Count 10.6 T/CUMM (4-12)
[2020-06-03 06:25] LABS: Platelet Count 40 T/CUMM (130-400)
[2020-06-03 06:27] LABS: Bilirubin,Total 17.5 MG/DL (0.2-1.0)
[2020-06-03 06:28] LABS: Albumin 1.3 G/DL (3.4-5.0); Bilirubin,Direct 11.88 MG/DL (0.0-0.20)
[2020-06-03 06:30] LABS: Bilirubin,Indirect 5.6 MG/DL (0.0-1.0); Bilirubin,Total 17.5 MG/DL (0.2-1.0)
[2020-06-03] MEDS ORDERED: SODIUM POLYSTYRENE SULFATE 15 GM/60 ML BOTTLE PO ONE (07:00)
[2020-06-03 07:13] LABS: Platelet Estimate Decreased
[2020-06-03] MEDS: FOLIC ACID 1 MG TABLET PO SCH (08:14)
[2020-06-03] MEDS: THIAMINE 100 MG TABLET PO SCH (08:14)
[2020-06-03] MEDS: PANTOPRAZOLE 40 MG TABLET PO SCH ×2 (08:14→20:49)
[2020-06-03] MEDS ORDERED: INSULIN REGULAR 100 UNIT/ML IV ONE (08:45)
[2020-06-03] MEDS: prednisoLONE 15 MG/5 ML ORAL.SYR PO SCH (08:51)
[2020-06-03] MEDS ORDERED: DEXTROSE 50% 25 GM/50 ML VIAL IV ONE (09:00)
[2020-06-03] MEDS ORDERED: CALCIUM GLUCONATE 1,000 MG in SODIUM CHLORIDE 0.9% 100 ML IV ONE (09:00)
[2020-06-03] MEDS: MORPHINE 4 MG/1 ML VIAL IV PRN (12:55)
[2020-06-04 05:15] LABS: Basophils # 0.1 10*3/uL (0.0-0.2); Basophils % 0.6 % (0.0-0.8); Eosinophils # 0.1 10*3/uL (0.0-0.87); Hematocrit 39.3 VOL% (35.7-47.0); Hemoglobin 13.8 GM/DL (12.0-16.0); Immature Granulocytes % 1.3 %; Immature Granulocytes Absolute 0.16 #; Lymphocytes # 1.1 10*3/uL (1.4-4.0); Lymphocytes % 9.3 % (21.3-54.2); Mean Corpuscular HGB Conc 35.1 GM/DL (32-36); Mean Corpuscular Volume 87.1 FL (87-102); Mean Platelet Volume 12.2 FL (9.6-12.0); Monocytes % 12.4 % (1.7-12.7); Neutrophils % 75.4 % (38.7-73.9); Red Blood Count 4.51 MC/CUMM (3.8-5.5); Red Cell Distribution Width 17.9 % (9.3-17.3); White Blood Count 12.2 T/CUMM (4-12)
[2020-06-04 05:19] LABS: Platelet Count 51 T/CUMM (130-400)
[2020-06-04] MEDS: cefOXitin 2,000 MG in SYRINGE 1 EACH IV SCH ×4 (05:32→23:25)
[2020-06-04] MEDS: LEVOTHYROXINE 50 MCG TABLET PO SCH (05:32)
[2020-06-04 05:38] LABS: Platelet Estimate Decreased
[2020-06-04 05:45] LABS: Albumin 1.3 G/DL (3.4-5.0); Bilirubin,Direct 11.86 MG/DL (0.0-0.20); Total Protein 6.9 G/DL (6.4-8.3)
[2020-06-04 06:01] LABS: Albumin 1.3 G/DL (3.4-5.0); Calcium 9.4 MG/DL (8.5-10.1); Osmolality,Calculated 266.8 MOS/KG (273-304); Total Protein 6.9 G/DL (6.4-8.3)
[2020-06-04 06:03] LABS: Bilirubin,Indirect 6.4 MG/DL (0.0-1.0); Bilirubin,Total 18.3 MG/DL (0.2-1.0)
[2020-06-04 06:04] LABS: Bilirubin,Total 18.1 MG/DL (0.2-1.0)
[2020-06-04] MEDS: FOLIC ACID 1 MG TABLET PO SCH (09:07)
[2020-06-04] MEDS: PANTOPRAZOLE 40 MG TABLET PO SCH ×2 (09:07→20:35)
[2020-06-04] MEDS: THIAMINE 100 MG TABLET PO SCH (09:07)
[2020-06-04] MEDS: prednisoLONE 15 MG/5 ML ORAL.SYR PO SCH (09:18)
[2020-06-04] MEDS ORDERED: DEXTROSE 50% 25 GM/50 ML VIAL IV ONE (12:15)
[2020-06-04] MEDS ORDERED: INSULIN REGULAR 100 UNIT/ML IV ONE (12:15)
[2020-06-04] MEDS ORDERED: CALCIUM GLUCONATE 1,000 MG in SODIUM CHLORIDE 0.9% 100 ML IV ONE (12:30)
[2020-06-05] MEDS: cefOXitin 2,000 MG in SYRINGE 1 EACH IV SCH ×2 (05:56→10:45)
[2020-06-05] MEDS: LEVOTHYROXINE 50 MCG TABLET PO SCH (05:56)
[2020-06-05] MEDS: FOLIC ACID 1 MG TABLET PO SCH (08:51)
[2020-06-05] MEDS: PANTOPRAZOLE 40 MG TABLET PO SCH (08:51)
[2020-06-05] MEDS: THIAMINE 100 MG TABLET PO SCH (08:51)
[2020-06-05] MEDS: prednisoLONE 15 MG/5 ML ORAL.SYR PO SCH (08:57)
[2020-06-05 11:34] VITALS: BP 102/52
== END 2020-06-05 13:28 | disposition hospice, home (50) | DRG 254 ==
LOC: N.ED 09:39 → N.EDINP 11:38 → SUATTDRO 11:38 → N.3E 15:43 → N.ICU 05-30 12:07 → N.3E 05-31 16:04
PROVIDERS: ADMIT Surgery; ATTEND Internal Medicine

== ENCOUNTER 2020-06-07 19:25 | Inpatient (IN) ==
[2020-06-07 20:07] LABS: Basophils % 0.1 % (0.0-0.8); Hematocrit 35.6 VOL% (35.7-47.0); Immature Granulocytes % 2.2 %; Immature Granulocytes Absolute 0.46 #; Lymphocytes # 0.7 10*3/uL (1.4-4.0); Lymphocytes % 3.3 % (21.3-54.2); Mean Corpuscular HGB Conc 36.5 GM/DL (32-36); Mean Corpuscular Volume 84.8 FL (87-102); NRBC # 0.04 10*3/uL; Neutrophils % 85.4 % (38.7-73.9); Platelet Count 42 T/CUMM (130-400); Red Cell Distribution Width 17.1 % (9.3-17.3); White Blood Count 21.1 T/CUMM (4-12)
[2020-06-07 20:18] LABS: Alanine Aminotransferase 111 U/L (13-56); Albumin 1.1 G/DL (3.4-5.0); Alkaline Phosphatase 143 U/L (45-117); Aspartate Amino Transferase 277 U/L (0-37); Blood Urea Nitrogen 59 MG/DL (7-18); Calcium 8.9 MG/DL (8.5-10.1); Estimated Glom Filtration Rate 7 ML/MIN; Glucose 61 MG/DL (74-106); Osmolality,Calculated 271.1 MOS/KG (273-304); Total Protein 6.9 G/DL (6.4-8.3)
[2020-06-07] MEDS ORDERED: SODIUM CHLORIDE 0.9% 1,000 ML IV STA ×2 (20:18→22:37)
[2020-06-07 21:30] LABS: Bacteria,Urine Occasional /HPF (Few); Bilirubin,Urine Negative (Negative); Blood, Urine Moderate mg/dL (Negative); Glucose,Urine (UA) 50 mg/dL (Negative); Hyaline Casts,Urine 61 /LPF (0-3); Ketones,Urine 5 mg/dL (Negative); Mucus,Urine Occasional /LPF (Occasional); Nitrite,Urine Negative (Negative); Protein,Urine 100 MG/DL; RBC,Urine 4 /HPF (0-4); Squamous Epithelial Cell,Urine Occasional /HPF (0-10); Urine Appearance CLOUDY (Clear); Urine Color Amber (Yellow); Urine Specific Gravity 1.029 (1.001-1.035); Urine Urobilinogen < 2.0 EU/DL (0.2-1.0); WBC,Urine 48 /HPF (0-6)
[2020-06-07 21:49] LABS: Partial Thromboplastin Time 89.4 SECS (23.9-33.8)
[2020-06-07 21:56] LABS: Barbiturates Screen,Urine Negative (Negative); Benzodiazepines Screen,Urine Negative (Negative); Cannabinoid Screen,Urine Positive (Negative); Opiate Screen,Urine Positive (Negative); Phencyclidine Screen,Urine Negative (Negative)
[2020-06-07 22:00] LABS: INR > 17.6; PT Patient Result > 178.9 SECS (9.8-11.9)
[2020-06-07] MEDS ORDERED: SODIUM CHLORIDE 0.9% 1,000 ML IV PRN (22:02)
[2020-06-07] MEDS ORDERED: PHYTONADIONE 10 MG/1 ML AMP SUBCUT STA (22:19)
[2020-06-07 22:57] LABS: Lymphocytes 4 % (20-55); Microcytosis Slight; Nucleated Red Blood Cells 1 (0-5); Platelet Estimate Decreased; Segmented Neutrophils 87 % (50-85); Total Cells Counted 100
[2020-06-08] MEDS ORDERED: VANCOMYCIN INJ 1,000 MG in SODIUM CHLORIDE 0.9% 250 ML IV STA (00:10)
[2020-06-08] MEDS ORDERED: PIPERACILLIN/TAZOBACTAM 2,250 MG in SODIUM CHLORIDE 0.9% 100 ML IV STA (00:10)
[2020-06-08] MEDS ORDERED: SODIUM CHLORIDE 0.9% 1,000 ML IV PRN (03:51)
[2020-06-08] MEDS ORDERED: PHYTONADIONE 10 MG/1 ML AMP SUBCUT ONE (03:51)
[2020-06-08] MEDS ORDERED: SODIUM POLYSTYRENE SULFATE 15 GM/60 ML BOTTLE PO STA (03:52)
[2020-06-08] MEDS ORDERED: GLUCAGON 1 MG VIAL IM PRN ×2 (03:54)
[2020-06-08] MEDS ORDERED: DEXTROSE 50% 25 GM/50 ML VIAL IV PRN (03:54)
[2020-06-08] MEDS ORDERED: ALBUTEROL 2.5 MG/3 ML NEB RESP TX PRN (03:54)
[2020-06-08] MEDS ORDERED: DEXTROSE 5% NACL 0.9% 1,000 ML IV SCH (04:00)
[2020-06-08] MEDS ORDERED: LACTULOSE 20 GM/30 ML UDCUP PO SCH (04:00)
[2020-06-08 05:04] LABS: Basophils % 0.2 % (0.0-0.8); Eosinophils % 0.1 % (0.00-10.9); Hemoglobin 13.2 GM/DL (12.0-16.0); Immature Granulocytes % 2.6 %; Lymphocytes # 0.6 10*3/uL (1.4-4.0); Lymphocytes % 3.2 % (21.3-54.2); Mean Corpuscular HGB Conc 36.7 GM/DL (32-36); Mean Corpuscular Volume 85.3 FL (87-102); Mean Platelet Volume 10.3 FL (9.6-12.0); NRBC # 0.05 10*3/uL; Neutrophils % 85.9 % (38.7-73.9); Platelet Count 75 T/CUMM (130-400); Red Blood Count 4.22 MC/CUMM (3.8-5.5); Red Cell Distribution Width 17.2 % (9.3-17.3); White Blood Count 19.2 T/CUMM (4-12)
[2020-06-08 05:17] LABS: Calcium 9.1 MG/DL (8.5-10.1); Osmolality,Calculated 272.9 MOS/KG (273-304)
[2020-06-08 05:25] LABS: INR > 17.6; PT Patient Result > 178.9 SECS (9.8-11.9)
[2020-06-08 05:43] LABS: Anisocytosis Slight; Band Neutrophils 6 % (0-10); Burr Cells 1+; Lymphocytes 7 % (20-55); Macrocytosis 1+; Metamyelocytes 2 %; Nucleated Red Blood Cells 1 (0-5); Platelet Estimate Decreased; Segmented Neutrophils 78 % (50-85); Total Cells Counted 100
[2020-06-08 05:44] LABS: Spherocytes Few
[2020-06-08] MEDS ORDERED: DEXTROSE 50% 25 GM/50 ML SYRINGE IV ONE (05:54)
[2020-06-08] MEDS: KETOROLAC 30 MG/1 ML VIAL IV PRN ×2 (09:31→19:19)
[2020-06-08] MEDS: INSULIN LISPRO 100 UNIT/ML SUBCUT SCH ×4 (10:49→20:04)
[2020-06-08] MEDS: PANTOPRAZOLE 40 MG VIAL IV SCH (10:50)
[2020-06-09] MEDS: PANTOPRAZOLE 40 MG VIAL IV SCH (05:05)
[2020-06-09] MEDS: INSULIN LISPRO 100 UNIT/ML SUBCUT SCH ×4 (08:16→20:50)
[2020-06-09] MEDS: DEXTROSE 50% 25 GM/50 ML VIAL IV PRN (08:41)
[2020-06-09] MEDS ORDERED: MORPHINE 4 MG/1 ML VIAL IV PRN (14:27)
[2020-06-09] MEDS ORDERED: ONDANSETRON 4 MG/2 ML VIAL IV PRN (14:28)
[2020-06-10] MEDS: PANTOPRAZOLE 40 MG VIAL IV SCH (06:11)
[2020-06-10] MEDS: DEXTROSE 50% 25 GM/50 ML VIAL IV PRN (07:15)
[2020-06-10 16:50] VITALS: BP 60/36
== END 2020-06-10 20:25 | disposition hospice, home (50) | DRG 280 ==
LOC: EDBD → EDSEX → EDUNIT# → N.ED 19:25 → N.EDINP 06-08 02:54 → SUATTDRO 06-08 02:54 → N.3E 06-08 06:11
PROVIDERS: ADMIT Internal Medicine; ATTEND Internal Medicine